=== PATIENT | female | born 1990 | race Caucasian/White ===

== ENCOUNTER → 2018-07-05 11:19 | Outpatient (CLI) | payer MEDICAID ==
[~2018-07-05 11:19] MED LIST: IBUPROFEN600 MG PO; PERCOCET 5/3251 TA1 PO; PRENATAL COMPLE1 TAB PO
== END | disposition home or self-care (01) ==
LOC: D.LDO 11:19
DX: O36.5990 Maternal care for other known or suspected poor fetal growth, unspecified trimester, not applicable or unspecified (principal); Z3A.00 Weeks of gestation of pregnancy not specified

== ENCOUNTER → 2018-07-08 11:03 | Outpatient (CLI) | payer MEDICAID | END | disposition home or self-care (01) | LOC: D.LDO 11:03 | DX: O43.893 Other placental disorders, third trimester (principal); Z3A.32 32 weeks gestation of pregnancy ==

== ENCOUNTER → 2018-07-12 12:37 | Outpatient (CLI) | payer MEDICAID | END | disposition home or self-care (01) | LOC: D.LDO 12:37 | DX: O36.5920 Maternal care for other known or suspected poor fetal growth, second trimester, not applicable or unspecified (principal); Z3A.20 20 weeks gestation of pregnancy; O43.892 Other placental disorders, second trimester ==

== ENCOUNTER → 2018-07-15 12:11 | Outpatient (CLI) | payer MEDICAID | END | disposition home or self-care (01) | LOC: D.LDO 12:11 | DX: O43.893 Other placental disorders, third trimester (principal); Z3A.33 33 weeks gestation of pregnancy ==

== ENCOUNTER → 2018-07-16 13:16 | Outpatient (CLI) | payer MEDICAID | END | disposition home or self-care (01) | LOC: D.LDO 13:16 | DX: O43.893 Other placental disorders, third trimester (principal); Z3A.33 33 weeks gestation of pregnancy ==

== ENCOUNTER → 2018-07-20 10:36 | Outpatient (CLI) | payer MEDICAID | END | disposition home or self-care (01) | LOC: D.LDO 10:36 | DX: O26.893 Other specified pregnancy related conditions, third trimester (principal); Z3A.34 34 weeks gestation of pregnancy ==

== ENCOUNTER → 2018-07-23 08:47 | Outpatient (CLI) | payer MEDICAID | END | disposition home or self-care (01) | LOC: D.LDO 08:47 | DX: O43.893 Other placental disorders, third trimester (principal); Z3A.34 34 weeks gestation of pregnancy ==

== ENCOUNTER → 2018-08-09 16:48 | Outpatient (CLI) | payer MEDICAID ==
[~2018-08-09 16:48] MED LIST changes: +COLACE100 MG PO; +FERROUS SULFAT325 MG PO; +MOTRIN600 MG PO; +OXYCODONE-APAP1 T10 PO; +ZOFRAN4 MG PO
[2018-08-13 05:32] VITALS: BMI 24.6
== END | disposition home or self-care (01) ==
LOC: D.LDO 16:48
DX: O26.893 Other specified pregnancy related conditions, third trimester (principal); Z3A.37 37 weeks gestation of pregnancy

== ENCOUNTER → 2018-08-12 11:03 | Outpatient (CLI) | payer MEDICAID ==
[2018-08-13 05:32] VITALS: BMI 24.6
== END | disposition home or self-care (01) ==
LOC: D.LDO 11:03
DX: O36.5930 Maternal care for other known or suspected poor fetal growth, third trimester, not applicable or unspecified (principal); Z3A.37 37 weeks gestation of pregnancy

== ENCOUNTER 2018-08-13 05:18 | Inpatient (IN) | payer MEDICAID ==
[~2018-08-13] VITALS: Ht 165.1 cm; Wt 67.1 kg
--- NOTE | ~2018-08-13 | OP ---
PATIENT NAME: NONA FOWLER MEDICAL RECORD: [id number] :88 LOCATION:[id number] ADMISSION DATE:08/13/18 SURGEON: JUSTINO CORREA MD DATE OF OPERATION: 08/13/2018 PREOPERATIVE DIAGNOSES: 1. Intrauterine growth restriction at 37 weeks. 2. intolerance to labor. POSTOPERATIVE DIAGNOSES: 1. Intrauterine growth restriction at 37 weeks. 2. intolerance to labor. PROCEDURE: A primary low transverse section. SURGEON: Justino Correa MD ANESTHESIA: Regional via epidural. INTRAVENOUS FLUIDS: Per anesthesia record. ESTIMATED BLOOD LOSS: 1000 cc. SPECIMENS: Placenta and cord for gases. COMPLICATIONS: None apparent. FINDINGS: Viable infant. Placenta delivered manually intact, 3-vessel cord noted. Grossly normal adnexa bilaterally. PROCEDURE IN DETAIL: The patient was taken to the operating room where regional anesthesia was achieved without difficulty. The patient was then prepped and draped in normal sterile fashion in the dorsal supine position. SCDs were on and functioning normally. Villafana catheter was placed and was draining freely. Following prep and drape, a Pfannenstiel skin incision was made, extended downward to the underlying subcutaneous fat to level of the fascia. The fascia was then excised in the midline and extended bilaterally using the Ellis scissors. Superior and inferior aspects of the fascial incision were then tented upward and sharply dissected from the underlying rectus muscle using the Bovie cautery and the Ellis scissors. The rectus muscle was then bluntly in the midline. The peritoneum entered sharply at the superior aspect of the incision. The peritoneal incision was extended using the Metzenbaum scissors. A bladder flap was created by excising the anterior leaf of the broad ligament across the lower uterine segment and a bladder blade was then placed. A low transverse incision was made and the uterus was entered bluntly using a finger. Uterine incision was extended superiorly and inferiorly using the Pelosi method. The vertex was delivered atraumatically and bulb suctioned and then the body was delivered atraumatically. The cord was clamped times 2, cut, and the infant was handed to the awaiting nursery team. Cord was obtained for gases. The placenta was then removed manually intact, a 3-vessel cord was noted. The uterus was exteriorized, cleared of all clots and debris and vigorously massaged. A good uterine tone was noted. The uterine incision was then repaired with 0 Vicryl in a running locked fashion times 2 with good hemostasis noted. The posterior cul-de-sac was then thoroughly irrigated and uterus was replaced into the pelvis. The anterior cul-de-sac was then irrigated OPERATIVE REPORT [id number] NONA FOWLER and the uterine incision was found to be hemostatic. Counts were correct times 2 for sponges, needles, and instruments. The rectus fascia was repaired with 0 loop PDS times 1 and the skin repaired with jorge a. The patient tolerated procedure well, transferred to postanesthesia recovery stable without incident. TRANSINT:[id number] Voice Confirmation ID: [id number] DOCUMENT ID: [id number] JUSTINO CORREA MD at 1905 CC: [id number] DICTATION DATE: 09/12/18 151 TRANSPORTATION ENGINEERING TECHNICIAN: 09/12/18 1542 DIS IN 08/15/18 [facility] [address] [place] [address]
[~2018-08-13 05:18] MED LIST changes: -COLACE100 MG PO; -FERROUS SULFAT325 MG PO; -MOTRIN600 MG PO; -OXYCODONE-APAP1 T10 PO; -ZOFRAN4 MG PO
[2018-08-13] MEDS ORDERED: ZOFRAN4 MG PO (05:31)
[2018-08-13 05:32] VITALS: BP 114/69; Ht 165.1 cm; Wt 67.1 kg
[2018-08-13 06:56] LABS: HEMOGLOBIN 11.6 g/dL (12-16); MCH 29.1 pg (26.0-34.0); MCHC 34.1 g/dL (31.0-37.0); MCV 85.2 fL (80.0-100.0); MEAN PLATELET VOLUME 11.6 fL (7.4-10.4); RBC 3.99 10x6/uL (4.00-5.40); RDW 13.3 % (11.5-14.5); WBC 10.6 10x3/uL (4.8-10.8)
[2018-08-13 17:18] VITALS: BP 115/64
[2018-08-13 17:34] VITALS: BP 116/65
[2018-08-13 17:49] VITALS: BP 120/76
[2018-08-13 18:04] VITALS: BP 122/79
[2018-08-13 21:21] VITALS: BP 123/72
[2018-08-14 00:28] LABS: BASOPHILS 0.1 % (0-2); EOSINOPHILS 0.7 % (0-7); HEMATOCRIT 28.2 % (36.0-48.0); HEMOGLOBIN 9.5 g/dL (12-16); IMMATURE GRANULOCYTES 0.3 % (0-5); LYMPHOCYTES 12.2 % (15-50); MCH 28.9 pg (26.0-34.0); MCHC 33.7 g/dL (31.0-37.0); MCV 85.7 fL (80.0-100.0); MEAN PLATELET VOLUME 10.9 fL (7.4-10.4); MONOCYTES 7.4 % (2-11); NEUTROPHILS 79.3 % (40-80); PLATELET COUNT 196 10x3/uL (130-400); RBC 3.29 10x6/uL (4.00-5.40); RDW 13.1 % (11.5-14.5)
[2018-08-14 00:30] LABS: WBC 13.7 10x3/uL (4.8-10.8)
[2018-08-14 03:45] VITALS: BP 109/64
[2018-08-14 06:45] LABS: BASOPHILS 0.2 % (0-2); HEMATOCRIT 28.5 % (36.0-48.0); HEMOGLOBIN 9.7 g/dL (12-16); IMMATURE GRANULOCYTES 0.2 % (0-5); LYMPHOCYTES 11.7 % (15-50); MCV 85.1 fL (80.0-100.0); MEAN PLATELET VOLUME 11.2 fL (7.4-10.4); MONOCYTES 9.4 % (2-11); NEUTROPHILS 77.5 % (40-80); PLATELET COUNT 193 10x3/uL (130-400); RBC 3.35 10x6/uL (4.00-5.40); RDW 13.2 % (11.5-14.5)
[2018-08-14 07:18] VITALS: BP 121/64
[2018-08-14 07:22] LABS: RAPID PLASMA REAGIN Non Reactive (Non Reactive)
[2018-08-14 17:25] VITALS: BP 111/63
[2018-08-14 20:00] VITALS: BP 126/75
[2018-08-14 22:08] VITALS: BP 117/70
[2018-08-15 03:07] VITALS: BP 111/58
[2018-08-15 07:30] VITALS: BP 110/59
[2018-08-15] MEDS ORDERED: OXYCODONE-APAP1 T10 PO (09:10)
[2018-08-15] MEDS ORDERED: MOTRIN600 MG PO (09:11)
[2018-08-15] MEDS ORDERED: COLACE100 MG PO (09:11)
[2018-08-15] MEDS ORDERED: FERROUS SULFAT325 MG PO (09:11)
== END 2018-08-15 13:41 | disposition home or self-care (01) | DRG 765 ==
LOC: D.LD 05:18
PROVIDERS: Obstetrics & Gynecology
PROC: 10907ZC Drainage of Amniotic Fluid, Therapeutic from Products of Conception, Via Natural or Artificial Opening (ICD-10-PCS; 2018-08-13)
PROC: 3E033VJ Introduction of Other Hormone into Peripheral Vein, Percutaneous Approach (ICD-10-PCS; 2018-08-13)
PROC: 10D00Z1 Extraction of Products of Conception, Low, Open Approach (ICD-10-PCS; principal; 2018-08-13 16:01)
DX: O24.420 Gestational diabetes mellitus in childbirth, diet controlled (principal); O36.5930 Maternal care for other known or suspected poor fetal growth, third trimester, not applicable or unspecified; Z3A.37 37 weeks gestation of pregnancy; Z37.0 Single live birth; O61.0 Failed medical induction of labor; O99.334 Smoking (tobacco) complicating childbirth; M48.00 Spinal stenosis, site unspecified; O99.02 Anemia complicating childbirth; O16.4 Unspecified maternal hypertension, complicating childbirth; O99.344 Other mental disorders complicating childbirth; O75.89 Other specified complications of labor and delivery